=== PATIENT | male | born 1995 | race Caucasian/White ===

== ENCOUNTER 2017-02-03 08:17 | Emergency (ER) | payer SELFPAY ==
[~2017-02-03] VITALS: Ht 180.3 cm; Wt 114.5 kg
[~2017-02-03 08:17] MED LIST: AMPH25CA3 PO
[2017-02-03 08:23] VITALS: Ht 180.3 cm; Wt 114.5 kg
--- OUTSIDE RECORDS SUMMARY | 2017-02-03 08:23 | XMS REPORT | Referral Summary ---
Author Author [facility], Family [facility] Organization [facility] Address Unknown Phone Unavailable Care Team Providers Care Corporate Development Analyst Name Role Phone No PCP, States Primary Care Physician [phone] Encounter VC Date(s): 03/02/16 - 03/02/16 [facility] [address] [place] [address] Discharge Diagnosis: Sore throat Discharge Diagnosis: Nasal congestion Discharge Disposition: 01-Home or Self Care Attending Physician: Fredrick Villagomez MD Admitting Physician: Fredrick Villagomez MD Vital Signs Most recent to 1 oldest [Reference Range]: Temperature Tympanic 36.4 degC [36.6-38.1 degC] *LOW* (03/02/16 9:48 AM) Peripheral Pulse 94 bpm Rate [60-100 bpm] (03/02/16 9:48 AM) Respiratory Rate 96 br/min [14-20 br/min] *HI* (03/02/16 9:48 AM) Blood Pressure 115/72 mmHg [90-140/60-90 mmHg] (03/02/16 9:48 AM) Problem List Condition Effective Dates Status Health Status Informant Asthma(Confirmed) Active patient ADHD (attention Active patient deficit hyperactivity disorder)(Confirmed) Allergies, Adverse Reactions, Alerts Substance Reaction Severity Status amoxicillin Rash Active penicillin Adverse Reaction Medium Active Rash Medications No Known Medications Results No data available for this section Immunizations No data available for this section Procedures Procedure Date Related Diagnosis Body Site Miscellaneous1 1History of adenoidectomy, several episodes of ear tubes, and wisdom teeth removal Social History Social History Type Response Smoking Status Current some day smoker1 1He reports he smokes cigarettes occasionally, approximately one pack per week. Advised to quit. Assessment and Plan Extracted from: Title: Acute OV Author: Fredrick Villagomez MD Date: 03/02/16 Patient: ZEN MASTERS Age: 20 years Sex: Male : 1995 Associated Diagnoses: Nasal congestion; Sore throat Author: Fredrick Villagomez MD Visit Information Visit type: General concerns. Source of history: Self. History limitation: None. Chief Complaint 03/02/2016 9:48 CDT THROAT PAIN AND BLEEDING History of Present Illness 20 year old male patient presents with he reports it started with itchy throat, drainage, wet cough, he reports the left sided throat pain x2 weeks which intensified a few days after and gradually progressed to generalized throat pain x4 days. He reports he has noticed some slight blood in his phlegm when he coughs it out. He denies any recent episodes of epistaxis, blood gums or bleeding issues. He denies any fevers, but does mention cold sweats at night over the last 2 weeks. He denies any body aches. He noticed sinus pain this morning. He denies any wheezing, shortness of breath, nausea, vomiting, diarrhea. ROS: Constitutional: Generally feeling well with no weight changes. Respiratory: No shortness of breath, or wheezing. Cardiovascular: No chest pains or palpitations. Gastrointestinal: No abdominal pain or change in bowel habits. Urinary: No urinary problems. PFSH: Reviewed and updated in EHR. PHYSICAL EXAM: Appears in no acute distress. Oral mucous membranes are moist and appears well hydrated. Posterior pharynx without erythema, swelling, or exudate. HEENT. TMs clear. Nasal with moderate congestion but no obvious source of bleeding. No sinus tenderness. Oropharynx with minimal erythema, no tonillary enlargement or exudate. Neck supple without adenopathy or JVD. Lungs sounds are clear. Heart regular rate and rhythm. Abdomen soft, nontender, without organomegaly. Extremities without edema. Health Status Allergies: Allergic Reactions (Selected) Medium Penicillin- Adverse reaction and rash. Severity Not Documented Amoxicillin- Rash. Current medications: (Selected) Prescriptions Prescribed Afrin 0.05% nasal spray: 2 sprays, Nasal, BID, in each nostril, 15 mL [place] 5 mg-325 mg oral tablet: 1 tabs, Oral, q6hr, not to exceed 8 tablets/day, 10 tabs, PRN: as needed for pain guaiFENesin 400 mg oral tablet: 1 tabs, Oral, q4hr, not to exceed 6 doses/day with fluids, 20 tabs, PRN: as needed for congestion Documented Medications Documented Adderall: Oral, BID sertraline: Oral, Daily Problem list: Active Problems (2) ADHD (attention deficit hyperactivity disorder) Asthma Histories Family History: No family history items have been selected or recorded. Procedure history: No active procedure history items have been selected or recorded. Social History Social & Psychosocial Habits Alcohol 01/14/2015 Use: Denies Substance Abuse 01/14/2015 Use: Denies Tobacco 01/14/2015 Use: Never smoker . Physical Examination Vital Signs 03/02/2016 9:48 CDT Temperature Tympanic 36.4 degC LOW Peripheral Pulse Rate 94 bpm Respiratory Rate 96 br/min HI Systolic Blood Pressure 115 mmHg Diastolic Blood Pressure 72 mmHg Measurements from flowsheet : Measurements 03/02/2016 9:48 CDT Height/Length Measured 180.34 cm Height/Length Measured 180.34 cm Weight Measured 97.52 kg Weight Metric Calculation 97.522 kg BSA Estimated 2.21 m2 BSA Estimated 2.21 m2 Body Mass Index 29.98 kg/m2 Body Mass Index 29.99 kg/m2 Weight - lbs 215 lb Weight - lbs 214.995 lb Height - In 71 inch Height - In 71 inch Percentile of BMI 95.48 Health Maintenance Health Maintenance Pending (in the next year) Due Influenza Pediatric due 03/02/16 and every 1 years Satisfied (in the past 1 year) There are no satisfied recommendations within the defined date range Review / Management Documentation reviewed: Reviewed prior records, Flowsheet, Reviewed home medications. Impression and Plan Diagnosis Nasal congestion ([id number] R09.81, Discharge, Medical). Sore throat (TCD06-CF J02.9, Discharge, Medical). Plan: I think the sore throat is related to postnasal drainage rather than a primary pharyngeal process. There may be a component of allergies, but he also has lots of irritant exposure. I recommended OTC Pseudoephedrin and nasal rinses such as Netipot or NeilMed rinse. I suggest that he wears as dust mask while at work. Follow up as needed. . Professional Services 03/02/2016 10:27. This note is prepared by Sheridan Pacheco, acting as a medical technologist chief for Dr. Fredrick Villagomez. The documentation recorded by the scribe reflects the service I personally performed and the decisions made by me. Addendum Respiratory rate was recorded at 96 which is of course a recording error. He appeared in by no respiratory distress with a normal respiratory rate on my exam. Fredrick Villagomez MD on March 02, 2016 12:28 CDT
--- OUTSIDE RECORDS SUMMARY | 2017-02-03 08:24 | XMS REPORT | Referral Summary ---
Author Author [facility] Organization [facility] Address Unknown Phone Unavailable Care Team Providers Care Organizational Development Specialist Name Role Phone Tony Fischer Primary Care Physician [phone] Encounter VC Date(s): 02/23/15 - 02/23/15 [facility] [address] [place] [address] Discharge Diagnosis: Fever Discharge Diagnosis: Nausea with vomiting Discharge Diagnosis: Right shoulder strain Final: NAUSEA WITH VOMITING Final: PAIN IN JOINT INVOLVING SHOULDER REGION Discharge Disposition: 01-Home or Self Care Attending Physician: August Nazario MD Admitting Physician: August Nazario MD Referring Physician: Self Referred, X Vital Signs Most recent to 1 oldest [Reference Range]: Peripheral Pulse 84 bpm Rate [55-90 bpm] (02/23/15 6:25 PM) Respiratory Rate 16 br/min [14-20 br/min] (02/23/15 6:25 PM) Blood Pressure 113/71 mmHg [90-138/45-84 mmHg] (02/23/15 6:25 PM) SpO2 98 % (02/23/15 6:25 PM) Problem List Condition Effective Dates Status Health Status Informant Asthma(Confirmed) Active patient ADHD (attention Active patient deficit hyperactivity disorder)(Confirmed) Allergies, Adverse Reactions, Alerts Substance Reaction Severity Status amoxicillin Rash Active penicillin Adverse Reaction Medium Active Rash Medications Adderall Oral, BID, 0 Refill(s) Start Date: 01/14/15 Status: Ordered Afrin 0.05% nasal spray 2 sprays, Nasal, BID, in each nostril, # 15 mL, 0 Refill(s) Start Date: 01/14/15 Status: Ordered guaiFENesin 400 mg oral tablet 1 tabs, Oral, q4hr, as needed for congestion, not to exceed 6 doses/day with fluids, # 20 tabs, 0 Refill(s) Start Date: 01/14/15 Status: Ordered [place] 5 mg-325 mg oral tablet 1 tabs, Oral, q6hr, as needed for pain, not to exceed 8 tablets/day, # 10 tabs, 0 Refill(s) Start Date: 01/14/15 Status: Ordered sertraline Oral, Daily, 0 Refill(s) Start Date: 01/14/15 Status: Ordered Results Hematology Most recent to 1 oldest [Reference Range]: WBC [4.5-13.0 10.2 10*3/uL 10*3/uL] (02/23/15 6:22 PM) RBC [4.50-5.30 5.67 10*6/uL 10*6/uL] *HI* (02/23/15 6:22 PM) Hgb [13.0-16.0 15.5 gm/dL gm/dL] (02/23/15 6:22 PM) Hct [37.0-49.0 %] 45.6 % (02/23/15 6:22 PM) MCV [78.0-98.0 fL] 80.4 fL (02/23/15 6:22 PM) MCH [25.0-35.0 pg] 27.3 pg (02/23/15 6:22 PM) MCHC [31.0-37.0 34.0 gm/dL gm/dL] (02/23/15 6:22 PM) RDW [11.5-14.5 %] 13.5 % (02/23/15 6:22 PM) Platelet [150-400 444 10*3/uL 10*3/uL] *HI* (02/23/15 6:22 PM) MPV [9.4-12.3 fL] 8.8 fL *LOW* (02/23/15 6:22 PM) Immature 0.3 % Granulocytes (02/23/15 6:22 PM) [0.0-1.0 %] Neutrophils [51-75 73 % %] (02/23/15 6:22 PM) Lymphocytes [20-46 15 % %] *LOW* (02/23/15 6:22 PM) Monocytes [4-11 %] 11 % (02/23/15 6:22 PM) Eosinophils [0-4 %] 1 % (02/23/15 6:22 PM) Basophils [0-2 %] 0 % (02/23/15 6:22 PM) Neutro Absolute 7.41 10*3 [1.80-8.00 10*3] (02/23/15 6:22 PM) Lymph Absolute 1.48 10*3 [1.20-5.20 10*3] (02/23/15 6:22 PM) [place] Absolute 1.13 10*3 [0.00-0.80 10*3] *HI* (02/23/15 6:22 PM) Eos Absolute 0.12 10*3 [0.00-0.60 10*3] (02/23/15 6:22 PM) Baso Absolute 0.02 10*3 [0.00-0.20 10*3] (02/23/15 6:22 PM) Chemistry Most recent to 1 oldest [Reference Range]: Sodium Lvl [136-144 132 mEq/L mEq/L] *LOW* (02/23/15:22 PM) Potassium Lvl 4.5 mEq/L [3.6-5.1 mEq/L] (02/23/15 6:22 PM) Chloride [99-109 97 mEq/L mEq/L] *LOW* (02/23/15:22 PM) CO2 [22-32 mEq/L] 25 mEq/L (02/23/15 6:22 PM) AGAP [3-20] 10 (02/23/15 6:22 PM) BUN [4-20 mg/dL] 12 mg/dL (02/23/15 6:22 PM) Glucose Lvl [70-100 105 mg/dL mg/dL] *HI* (02/23/15 6:22 PM) Creatinine Lvl 0.81 mg/dL [0.64-1.27 mg/dL] (02/23/15 6:22 PM) Calcium Lvl 9.3 mg/dL [8.6-10.0 mg/dL] (02/23/15 6:22 PM) Albumin Lvl [3.5-4.8 4.0 gm/dL gm/dL] (02/23/15 6:22 PM) Total Protein 8.5 gm/dL [6.1-7.9 gm/dL] *HI* (02/23/15 6:22 PM) Globulin [1.9-4.3 4.5 gm/dL gm/dL] *HI* (02/23/15 6:22 PM) ALT [17-63 U/L] 51 U/L (02/23/15 6:22 PM) AST [15-41 U/L] 41 U/L (02/23/15 6:22 PM) Alk Phos [117-390 83 U/L U/L] *LOW* (02/23/15 6:22 PM) Bili Total [0.2-1.2 0.6 mg/dL 1 mg/dL] (02/23/15 6:22 PM) 1Result Comment: Naproxen, specifically the metabolite O-desmethylnaproxen, may cause spurious elevation in Total Bilirubin levels. Urinalysis Most recent to 1 oldest [Reference Range]: UA Color Yellow (02/23/15 7:33 PM) UA Appear Clear (02/23/15 7:33 PM) UA pH [5.0-8.0] 5.0 (02/23/15 7:33 PM) UA Leuk Est Negative [Negative] (02/23/15 7:33 PM) UA Nitrite Negative [Negative] (02/23/15 7:33 PM) UA Protein Negative [Negative] (02/23/15 7:33 PM) UA Glucose Negative [Negative] (02/23/15 7:33 PM) UA Ketones Trace [Negative] *ABN* (02/23/15 7:33 PM) UA Urobilinogen 1.0 mg/dL [<1.0 mg/dL] (02/23/15 7:33 PM) UA Bili [Negative] Negative (02/23/15 7:33 PM) UA Blood [Negative] Negative (02/23/15 7:33 PM) UA Spec Grav 1.018 [1.003-1.030] (02/23/15 7:33 PM) Type Voided (02/23/15 7:33 PM) Immunizations No data available for this section Procedures No data available for this section Social History Social History Type Response Smoking Status Never smoker Assessment and Plan No data available for this section
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
--- OUTSIDE RECORDS SUMMARY | 2017-02-03 08:24 | XMS REPORT | Referral Summary ---
Author Organization Unknown Address Unknown Phone Unavailable Care Team Providers Care Director Of Psychology Name Role Phone Tony Fischer Primary Care Physician [phone] Encounter VC Date(s): 01/14/15 - 01/14/15 [facility] [address] [place] [address] [place] ( 1 ) - Discharge Diagnosis: Acute sinusitis Discharge Diagnosis: Headache Discharge Disposition: Home or Self Care Attending Physician: Angi Almeida MD Admitting Physician: Angi Almeida MD Vital Signs Most recent to 1 oldest [Reference Range]: Temperature Oral 37.1 degC [36.0-37.6 degC] (01/14/15 1:42 PM) Peripheral Pulse 58 bpm Rate [55-90 bpm] (01/14/15 5:27 PM) Respiratory Rate 18 br/min [14-20 br/min] (01/14/15 5:27 PM) Blood Pressure 122/74 mmHg [90-138/45-84 mmHg] (01/14/15 5:27 PM) Most recent to 1 oldest [Reference Range]: SpO2 98 % (01/14/15 5:27 PM) Problem List Condition Effective Dates Status Health Status Informant ADHD (attention Active patient deficit hyperactivity disorder)(Confirmed) Allergies, Adverse Reactions, Alerts Substance Reaction Severity Status penicillin Adverse Reaction Active Medications Adderall Oral, BID, 0 Refill(s) Start Date: 01/14/15 Status: Ordered Afrin 0.05% nasal spray 2 sprays, Nasal, BID, in each nostril, # 15 mL, 0 Refill(s) Special Instructions: in each nostril Start Date: 01/14/15 Status: Ordered guaiFENesin 400 mg oral tablet 1 tabs, Oral, q4hr, as needed for congestion, not to exceed 6 doses/day with fluids, # 20 tabs, 0 Refill(s) Special Instructions: not to exceed 6 doses/day with fluids Start Date: 01/14/15 Status: Ordered [place] 5 mg-325 mg oral tablet 1 tabs, Oral, q6hr, as needed for pain, not to exceed 8 tablets/day, # 10 tabs, 0 Refill(s) Special Instructions: not to exceed 8 tablets/day Start Date: 01/14/15 Status: Ordered sertraline Oral, Daily, 0 Refill(s) Start Date: 01/14/15 Status: Ordered Results No data available for this section Immunizations No data available for this section Procedures No data available for this section Social History Social History Type Response Smoking Status Never smoker Assessment and Plan No data available for this section
[2017-02-03] MEDS ORDERED: ASPIRIN 81 MG CHEWABLE TABLET PO ONE (08:45)
[2017-02-03 08:50] LABS: BASOPHILS % (AUTO) 0.1 % (0-2); EOSINOPHILS # (AUTO) 0.2 T/MM3 (0-0.5); HCT - HEMATOCRIT 46.3 % (41-53); HGB - HEMOGLOBIN 16.1 GM/DL (13.5-17.5); IMMATURE GRANULOCYTE # (AUTO) 0.02 T/MM3 (0.00-0.03); IMMATURE GRANULOCYTE % (AUTO) 0.2 % (0.0-0.5); LYMPHOCYTES # (AUTO) 1.1 T/MM3 (1-4.8); LYMPHOCYTES % (AUTO) 10.7 % (23-45); MEAN CORPUSCULAR HGB 28.4 UUG (26-34); MEAN CORPUSCULAR HGB CONC(MCHC 34.8 GM/DL (31-37); MEAN CORPUSCULAR VOLUME 81.7 UM3 (80-100); MONOCYTES # (AUTO) 0.6 T/MM3 (0-0.8); MONOCYTES % (AUTO) 5.3 % (0-9.0); NEUTROPHILS #(AUTO)-ABSOLUTE 8.4 T/MM3 (1.8-7.7); NEUTROPHILS % (AUTO) 81.7 % (33-66); RED BLOOD COUNT 5.67 M/MM3 (4.50-5.90); WBC - WHITE BLOOD COUNT 10.3 T/MM3 (4.5-11.0)
[2017-02-03 09:02] LABS: ALBUMIN 4.7 G/DL (3.5-5.0); ALBUMIN/GLOBULIN RATIO 1.7 RATIO (1.1-2.2); ALKALINE PHOSPHATASE 60 U/L (38-126); ALT (SGPT) 144 U/L (21-72); ANION GAP 17 MEQ/L (5-15); AST (SGOT) 48 U/L (17-59); BUN/CREATININE RATIO 21 RATIO (6-26); CALCIUM 9.3 MG/DL (8.4-10.2); CHLORIDE 104 MEQ/L (98-107); CO2 - CARBON DIOXIDE 26 MEQ/L (22-30); CREATININE 0.9 MG/DL (0.8-1.5); GLOMERULAR FILTRATION RATE 109; GLUCOSE 105 MG/DL (75-110); POTASSIUM 4.5 MEQ/L (3.6-5); SODIUM 147 MEQ/L (134-144); TOTAL PROTEIN 7.4 G/DL (6.3-8.2)
[2017-02-03 09:04] LABS: INR 1.01 (0.76-1.04)
--- OUTSIDE RECORDS SUMMARY | 2017-02-03 09:06 | XMS REPORT | Continuity of Care Document ---
Author Author [facility] Organization [facility] Address Unknown Phone Unavailable Allergies Active Description Code Type Severity Reaction Onset Reported/Identified Relationship to Patient Clinical Status Yes amoxicillin NKMA N/A [id number] Yes penicillin NKMA Medium Adverse Reaction [id number] Yes Penicillins Drug Allergy Adverse Reaction 08/22/2010 Yes Penicillins Drug Allergy N/A Adverse Reaction 08/22/2010 Yes No Allergy Information Drug Allergy 07/06/2012 Yes No Allergy Information Drug Allergy N/A N/A 07/06/2012 Yes No Known Food Allergies Food Allergy N/A N/A 01/07/2014 Yes amoxicillin NKMA N/A [id number] 02/23/2015 Yes penicillin NKMA Medium Adverse Reaction [id number] 02/23/2015 Medications Medication Packaging Start Date Stop [...] Nasal, BID, in each nostril, 15 mL HYDROcodone-acetaminophen([place] 5 mg-325 mg oral tablet) 1 tabs [...] for 10 days, 20 tabs, 0 Refill(s) HYDROcodone-acetaminophen([place] 5 mg-325 mg oral tablet) 02/23/2015 2015 [...] Arias MD 719.46 JOINT PAIN-LOWER LEG 07/06/2012 Luis Felipe Arias MD Final 959.7 LOWER LEG [...] RIDING 01/07/2014 Abdulaziz Carrillo MD External 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 Type Provider Facility Loc./Unit Complaint [id number] 01/07/2014 12:34:00 2013 14:25:00 DIS Emergency Abdulaziz Carrillo MD Via [facility] FERM [id number] 01/23/2013 14:43:00 2012 16:35:00 DIS Emergency Peter Newton Jr, MD Via [facility] TERM [id number] 07/06/2012 22:33:00 2011 00:03:00 DIS Emergency Hugo MULLEN, Luis Felipe [facility] on [address]
--- NOTE | 2017-02-03 09:09 | DI ---
INDICATION: ITS.REASON: dyspnea PROCEDURE: CHEST 2-VIEWS UPRIGHT (PA \T\ LAT) Encounter: Initial COMPARISON: None FINDINGS: The lungs are clear without evidence of focal abnormal airspace opacity. There is no pleural effusion or pneumothorax. The heart size, mediastinal contours and pulmonary vascularity are within normal limits. There is no significant skeletal abnormality. IMPRESSION: No acute cardiopulmonary disease. .
--- NOTE | 2017-02-03 09:46 | ERPDOC ---
Departure Disposition Decision Date: February 03, 2017 Disposition Decision Time: 09:46 Disposition: 01 DISCHARGED HOME, SELF-CARE Impression Impression Impression: Primary Impression: Reactive airway disease Severity: Moderate Condition: Improved Seen By: Physician only Patient Instructions: Noncardiac Chest Pain (ED) Problems/Meds/Labs Reviewed?: Yes Medications reviewed and manag: Yes Additional Instructions: Prednisone 10 mg tablet, 3 tabs daily for 3 days, 2 tabs daily for 3 days, 1 tab daily for 3 days. Please return if tightness increases. Follow up care ordered?: Yes Mental Status: Alert, Oriented Scripts Prednisone (Prednisone) 10 Mg Tablet 0 PO TAPERQD, #18 TAB 30 mg daily x3 days 20 mg daily x3 days 10 mg daily x2 days Prov: DEAN PALMER MD 02/03/17 HPI - Cardiac General Chief Complaint: Chest Pain Stated Complaint: CHEST TIGHTENING, PROBLEMS BREATHING Time Seen by Provider: 08:32 HPI - Cardiac General Initial Comments 21-year-old male presents with chest pain which onset this morning. He had chest tightening and issues breathing. He does have a history of asthma. Smokes about a half a pack per day. 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 He does not normally have reflux or heartburn. Did have an episode of shortness of breath during the night, which resolved within a few minutes. No burning in the throat. Complaint is definitely more about a chest tightening and shortness of breath that is about a chest pain. No previous cardiac history Aspirin Today: 81 mg x 4 Allergies: Coded Allergies: Penicillins (Verified Allergy, Unknown, 02/03/17) amoxicillin (Verified Allergy, Unknown, 02/03/17) Past History Past Medical History Pt denies signifigant H Surgical History Denies Surgeries Family History Family History: Negative Social History Smoking Status: Current every day smoker Substance Use Type: does not use Record Review Pertinent history updated: Yes Review of Systems Cardiovascular Cardiac: see HPI Rhythm/Rate: see HPI Pulmonary Respiratory: see HPI All other Systems All Other Systems: Reviewed and Negative Physical Exam General General Nourishment: well nourished, well developed, appears stated age, no acute distress General Body Habitus: well groomed Vitals and Pain First Documented Vital Signs Date Time Temp Pulse Resp B/P Pulse Ox O2 Delivery O2 Flow Rate FiO2 02/03/17 08:23 98.7 84 16 134/88 96 Room Air Weight: Kilograms: 114.500 Height (feet): 5 Height (inches): 11.00 Triage Pain Scale: Normal Exams: Head: Normocephalic w/o trauma ENMT: No facial trauma, nasal exudates, pharyngeal erythema, or exudates are noted CV: Regular rate and rhythm, without murmur or gallop, Pulses 2+ all extremities, capillary refill, <2 seconds all ext., no pedal edema noted Abdomen: Bowel sounds positive, soft, non-tender, non-distended, no hepatosplenomegaly, masses or bruits noted Neurologic: Patient is alert, and oriented, cranial nerves, motor/sensory/ cerebellar, exams w/o gross deficits, to observation Psychiatric: Patient exhibits, appropriate attention, emotion and affect Respiratory (brief) Comments Wheezing bilaterally was minimal, but present. Differential Diagnoses Considering: Acute DC, Anxiety/Panic, Hyperventilation, Pericarditis, Pulmonary Edema, Pulmonary Embolus, Other (asthma) Progress Results/Orders Orders Procedure Category Date Status Time Cbc W/Auto LAB 02/03/17 Complete Diff-Reflex Manual 08:32 Cmp - Comprehensive LAB 02/03/17 Complete Metabolic 08:32 Troponin I W LAB 02/03/17 Complete Hemolysis Index 08:32 INR LAB 02/03/17 Complete 08:32 D-Dimer LAB 02/03/17 Complete 08:32 EKG EKG 02/03/17 Logged 08:32 Chest, Pa & Lateral RAD 02/03/17 Resulted 08:32 Aspirin (Asa) PHA 02/03/17 Complete 08:45 Lab Results Laboratory Tests Test 02/03/17 08:46 White Blood Count 10.3T/MM3 Red Blood Count 5.67M/MM3 Hemoglobin 16.1GM/DL Hematocrit 46.3% Mean Corpuscular Volume 81.7UM3 Mean Corpuscular Hemoglobin 28.4UUG Mean Corpuscular Hemoglobin Concent 34.8GM/DL RDW Standard Deviation 38.2FL Platelet Count 299T/MM3 Mean Platelet Volume 9.0UM3 Immature Granulocyte % (Auto) 0.2% Neutrophils (%) (Auto) 81.7% Lymphocytes (%) (Auto) 10.7% Monocytes (%) (Auto) 5.3% Eosinophils (%) (Auto) 2.0% Basophils (%) (Auto) 0.1% Absolute Immature Granulocyte (auto 0.02T/MM3 Absolute Neutrophils (auto) 8.4T/MM3 Absolute Lymphocytes (auto) 1.1T/MM3 Absolute Monocytes (auto) 0.6T/MM3 Absolute Eosinophils (auto) 0.2T/MM3 Absolute Basophils (auto) 0.0T/MM3 Prothromb Time International Ratio 1.01 D-Dimer < 150NG/ML Turbidity < 20 Sodium Level 147MEQ/L Potassium Level 4.5MEQ/L Chloride Level 104MEQ/L Carbon Dioxide Level 26MEQ/L Anion Gap 17MEQ/L Blood Urea Nitrogen 19.0MG/DL Creatinine 0.9MG/DL Glomerular Filtration Rate Calc 109 BUN/Creatinine Ratio 21RATIO Glucose Level 105MG/DL Calculated Osmolality 284MOSM/KG Calcium Level 9.3MG/DL Total Bilirubin 0.80MG/DL Icterus Index < 2 Aspartate Amino Transf (AST/SGOT) 48U/L Alanine Aminotransferase (ALT/SGPT) 144U/L Alkaline Phosphatase 60U/L Troponin I < 0.012ng/ml Total Protein 7.4G/DL Albumin 4.7G/DL Globulin 2.7G/DL Albumin/Globulin Ratio 1.7RATIO Chemistry Specimen Hemolysis < 15 Medications Current ED Medications Aspirin (ASA) 324 mg O ONCE PO ; Start 02/03/17 at 08:45; Stop 02/03/17 at 08: 45; Status DC Progress Progress Labs returned normal, d-dimer is negative, EKG looks appropriate. Troponin is also negative. I do think this is probably an asthma reaction. Patient was sent with prednisone burst and taper he does have an inhaler. Follow-up as needed. DEAN PALMER MD February 03, 2017 09:46
[2017-02-03] MEDS ORDERED: PRED10TA PO (09:47)
[2017-02-03] MEDS ORDERED: ALBUTEROL HFA INHALER 8gm ORAL INH ONE (10:00)
[2017-02-03 10:16] VITALS: BP 130/65; PULSE 86; RESP 18; TEMP 98.7; O2SAT 95
--- NOTE | 2017-02-03 10:18 | NUR ---
RT RT AT BEDSIDE FOR SPACE TEACHING.
== END 2017-02-03 10:16 | disposition home or self-care (01) ==
LOC: ED 08:17
DX: J45.909 Unspecified asthma, uncomplicated (principal); F17.200 Nicotine dependence, unspecified, uncomplicated
CPT/HCPCS: 36415; 80053; 84484; 85025; 85379; 85610; 93005; 94664